=== PATIENT | male | born 1990 | race Caucasian/White ===

== ENCOUNTER 2017-04-15 09:35 | Emergency (ER) | payer OTHER ==
[~2017-04-15] VITALS: Ht 180.3 cm; Wt 103.0 kg
[2017-04-15 09:50] VITALS: BP 124/73; PULSE 67; TEMP 36.4; O2SAT 97; Ht 180.3 cm; Wt 103.0 kg
[2017-04-15] MEDS ORDERED: PENI500T2 PO (10:20)
[2017-04-15] MEDS ORDERED: OXYC1TAB3 PO (10:20)
--- NOTE | 2017-04-15 14:27 | EMERGENCY ROOM VISIT NOTE ---
History Report prepared by [place]: Kim Ga Under the Supervision of: Dr. Young Mendoza M.D. First contact with patient: 10:12 Chief Complaint: DENTAL PAIN Stated Complaint: DENTAL PAIN Nursing Triage Summary: Pt c/o right upper dental pain since Sunday. Intermittent. Sunday morning pain was worse. But then it went away but came back last night. Impacted tooth that has been there for years. History of Present Illness The patient is a 27 year old male who presents to the Emergency Room with complaints of intermittent right upper dental pain starting 2 days ago. The pain started as a pressure 2 days ago. It has been intermittent since then. He woke up this morning with the pain and it has not resolved. The patient states that he has a decayed tooth which has been there for several years. He denies any fever, vomiting, or facial swelling. He denies any injury. He has tried taking ibuprofen to no significant relief. Source of History: patient Onset: 2 days ago Position: other (right upper dental) Quality: pressure Timing: intermittent Associated Symptoms: No fevers, No vomiting Note: Pt denies facial swelling. Review of Systems See HPI for pertinent positives & negatives. A total of 4 systems reviewed and were otherwise negative. Past Medical & Surgical Medical Problems: (1) No chronic problems Family History No pertinent family history stated. Social History Smoking Status: Never Smoker Marital Status: single Occupation Status: unemployed Current/Historical Medications Scheduled Penicillin V Potassium (Veetids), 500 MG PO TID Scheduled PRN Oxycodone Ir (Roxicodone Ir), 5 MG PO Q4H PRN for Pain Physical Exam Vital Signs Date Time Temp Pulse Resp B/P (MAP) Pulse Ox O2 Delivery O2 Flow Rate FiO2 04/15/17 09:50 36.4 67 16 124/73 97 Room Air Physical Exam Constitutional: Vital signs reviewed. Eyes: Pupils are equal round reactive to light. Conjunctiva are noninjected. ENT: Pharynx is clear without erythema or exudate. Mucous membranes are moist. There is a decayed partial molar to the right maxillary region without percussion tenderness. No gingival hyperemia or swelling. No swelling to the face or neck. Neck supple without meningeal signs. Neurological: The patient is awake and alert. No focal deficits. Psychiatric: Normal affect. Medical Decision & Procedures ED Course 1013: The patient was evaluated in room C3. A complete history and physical exam was performed. I discussed tonight's findings with him. He verbalized agreement of the treatment plan. He was discharged home. Medical Decision This is a 27-year-old male who presents with a toothache. I did perform a limited focused review of portions of the patient's old chart on the electronic medical record. The patient has had no recent pertinent visits to this hospital. I did evaluate patient as noted above. He has a decayed tooth in the right maxillary region. There is no outward sign of abscess at this time. There is no percussion tenderness or gingival swelling. He was discharged with a prescription for penicillin as well as OxyIR for breakthrough pain only. He was given precautions regarding this medication and will follow up with his dentist. [place] Drug Monitoring Program Search Results: patient reviewed within database Drug Monitoring Findings: No matching patients. Medication Reconcilliation Current Medication List: was personally reviewed by me Blood Pressure Screening Patient's blood pressure: Normal blood pressure Blood pressure disposition: Did not require urgent referral Impression Primary Impression: Odontalgia Scribe Attestation The scribe's documentation has been prepared under my direct and personally reviewed by me in its entirety. I confirm that the note above accurately reflects all work, treatment, procedures, and medical decision making performed by me. Departure Information Dispostion Home / Self-Care Prescriptions Oxycodone Ir (Roxicodone Ir) 5 Mg Tab 5 MG PO Q4H Y for Pain, #14 TAB Prov: Young Mendoza M.D. 04/15/17 Penicillin V Potassium (VEETIDS) 500 Mg Tab 500 MG PO TID for 10 Days, #30 TAB Prov: Young Mendoza M.D. 04/15/17 Referrals No Doctor, Assigned (PCP) Forms HOME CARE DOCUMENTATION FORM, IMPORTANT VISIT INFORMATION Patient Instructions My [facility], Toothache - [facility] Additional Instructions You have been examined and treated today on an emergency basis only. This is not a substitute for, or an effort to provide, complete comprehensive medical care. It is impossible to recognize and treat all injuries or illnesses in a single emergency department visit. It is therefore important that you follow up closely with a dentist. Call as soon as possible for an appointment. Return for worsening symptoms or if you develop fever, vomiting, significant facial swelling or any other concerning symptoms.
== END 2017-04-15 10:33 | disposition home or self-care (01) ==
LOC: C.EDB 09:38 → C.EDC 10:33
DX: K08.89 Other specified disorders of teeth and supporting structures (principal)